=== PATIENT | male | born 1990 | race Caucasian/White ===

== ENCOUNTER 2020-03-07 05:12 | Emergency (ER) | payer SELFPAY ==
[~2020-03-07] VITALS: Ht 185.4 cm; Wt 120.0 kg
[2020-03-07] MEDS ORDERED: LIDOCAINE 1%/EPI 1:100,000 10 ML VIAL IJ ONE (07:15)
[2020-03-07] MEDS ORDERED: BACITRACIN ZINC OINT UDPKT TOP ONE (07:15)
[2020-03-07] MEDS ORDERED: TETANUS, DIPHTHERIA, PERTUSSIS VAC/PF 0.5ML (>7YR OLD) IM ONE (07:15)
[2020-03-07] MEDS ORDERED: KETOROLAC 60MG/2ML VIAL IM ONE (07:30)
[2020-03-07] MEDS ORDERED: LIDOCAINE HCL/EPINEPHRINE 1%-EPI 1:100,000 20 ML VIAL INFIL ONE (07:30)
[2020-03-07 09:36] VITALS: BP 140/78
== END 2020-03-07 09:40 | disposition home or self-care (01) ==
LOC: ER 05:12
DX: S81.012A Laceration without foreign body, left knee, initial encounter (principal); W01.198A Fall on same level from slipping, tripping and stumbling with subsequent striking against other object, initial encounter; Y93.H3 Activity, building and construction; Y92.89 Other specified places as the place of occurrence of the external cause; Y99.8 Other external cause status
CPT/HCPCS: 12004; 73560; 90471; 90715; 96372; 99284; J1885; J3490; L1830